=== PATIENT | female | born 1990 | race Asian ===

== ENCOUNTER 2022-08-12 08:00 | Outpatient (CLI) | payer OTHER | END 2022-08-12 23:59 | disposition home or self-care (01) | LOC: LAB.R 08:00 | PROVIDERS: ATTEND Registered Nurse | DX: L03.019 Cellulitis of unspecified finger (principal) | CPT/HCPCS: 87070; 87181; 87205 ==

== ENCOUNTER 2022-11-10 09:49 | Emergency (ER) | payer OTHER ==
[2022-11-10 10:07] VITALS: O2SAT 100
[2022-11-10 10:31] LABS: BILIRUBIN,URINE NEGATIVE (NEGATIVE); GLUCOSE, URINE (UA) NEGATIVE (NEGATIVE); KETONES,URINE (UA) NEGATIVE (NEGATIVE); LEUKOCYTE ESTERASE, URINE NEGATIVE (NEGATIVE); NITRITE,URINE NEGATIVE (NEGATIVE); OCCULT BLOOD,URINE NEGATIVE (NEGATIVE); PROTEIN,URINE NEGATIVE (NEGATIVE); UROBILINOGEN,URINE 0.2 (NORMAL) E.U./dL (NORMAL)
[2022-11-10 10:32] LABS: CLARITY,URINE CLEAR (CLEAR); HCG UR QUAL POSITIVE
[2022-11-10 10:37] LABS: BASOPHILS # (AUTO) 0.1 10^3/uL (0.0-0.1); BASOPHILS % (AUTO) 0.6 %; EOSINOPHILS # (AUTO) 0.2 10^3/uL (0.0-0.7); EOSINOPHILS % (AUTO) 1.5 %; HCT - HEMATOCRIT 39.2 % (37.0-47.0); HGB - HEMOGLOBIN 12.7 g/dL (12.0-16.0); LYMPHOCYTES % (AUTO) 30.5 %; MEAN CORPUSCULAR HEMOGLOBIN 28.3 pg (27.0-31.0); MEAN CORPUSCULAR HGB CONC 32.4 g/dL (32.0-36.0); MEAN CORPUSCULAR VOLUME 87.5 fL (81.0-99.0); MEAN PLATELET VOLUME 9.8 fL (7.9-10.8); MONOCYTES # (AUTO) 0.5 10^3/uL (0.0-1.0); MONOCYTES % (AUTO) 5.4 %; NEUTROPHILS % (AUTO) 61.7 %; PLT - PLATELET COUNT 365 10^3/uL (130-450); RED BLOOD COUNT 4.48 10^6/uL (4.20-5.40); RED CELL DISTRIBUTION WIDTH 12.9 % (12.0-15.0); WHITE BLOOD COUNT 9.8 x10^3/uL (4.8-10.8)
[2022-11-10 10:49] LABS: ALBUMIN 4.5 g/dL (3.2-5.5); ALBUMIN/GLOBULIN RATIO 1.2 (1.0-2.2); BILIRUBIN,TOTAL 0.3 mg/dL (0.2-1.0); CALCIUM 9.6 mg/dL (8.5-10.3); CREATININE 0.5 mg/dL (0.6-1.3); POTASSIUM 3.9 mmol/L (3.5-4.5); TOTAL PROTEIN 8.2 g/dL (6.4-8.9)
--- NOTE | 2022-11-10 11:15 | ED Physician Documentation ---
PD HPI FEMALE - Stated complaint Stated Complaint: ABD PX - Chief complaint Chief Complaint: Abd Pain - History obtained from History obtained from: Patient - Additional information Additional information: The patient comes to the emergency department chief complaint of left pelvic pain. She just had a positive urine test yesterday and denies any Vaginal bleeding. She has been a bit nauseated. No vaginal discharge, dysuria, or fevers. She states that she has otherwise been feeling well. She denies history of ectopic or pelvic infections or procedures. No other complaints at this time. 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 Other Past Medical History: gestational diabetes - Past Surgical History Past Surgical History: No - Present Medications Home Medications: Ambulatory Orders Medication Instructions Recorded Confirmed Pnv No.95/Ferrous Fum/Folic AC 1 each PO DAILY 11/10/22 11/10/22 [ Caplet] - Allergies Allergies/Adverse Reactions: Allergies Allergy/AdvReac Type Severity Reaction Status Date / Time No Known Drug Allergies Allergy Verified 11/10/22 09:58 - Social History Does the pt smoke?: No Smoking Status: Never smoker Does the pt drink ETOH?: No Does the pt have substance abuse?: No PD ED PE NORMAL - Vitals Vital signs reviewed: Yes - General General: Alert and oriented X 3, No acute distress, Well developed/nourished - HEENT HEENT: Atraumatic, PERRL, EOMI, Moist mucous membranes - Neck Neck: Supple, no meningeal sign - Cardiac Cardiac: RRR, No murmur - Respiratory Respiratory: Clear bilaterally - Abdomen Abdomen: Soft, Non distended, Other (Mild left pelvic tenderness, no rebound or guarding.) - Female Female : Deferred - Derm Derm: Normal color, Warm and dry, No rash - Extremities Extremities: No deformity - Neuro Neuro: Alert and oriented X 3 - Psych Psych: Normal mood, Normal affect Results - Vitals Vitals: Vital Signs - 24 hr 11/10/22 11/10/22 09:54 11:26 Temperature 37.1 C Heart Rate 96 92 Respiratory 14 18 Rate Blood Pressure 137/84 H 109/73 O2 Saturation 100 100 Oxygen O2 Source Room air - Labs Labs: Laboratory Tests 11/10/22 11/10/22 11/10/22 10:19 10:28 10:28 WBC 9.8 RBC 4.48 Hgb 12.7 Hct 39.2 MCV 87.5 MCH 28.3 MCHC 32.4 RDW 12.9 Plt Count 365 MPV 9.8 Neut # (Auto) 6.0 Lymph # (Auto) 3.0 Linn # (Auto) 0.5 Eos # (Auto) 0.2 Baso # (Auto) 0.1 Absolute Nucleated RBC 0.00 Nucleated RBC % 0.0 Sodium 134 L Potassium 3.9 Chloride 103 Carbon Dioxide 23 Anion Gap 8.0 BUN 10 Creatinine 0.5 L Estimated GFR (MDRD) 143 Glucose 88 Calcium 9.6 Total Bilirubin 0.3 AST 14 ALT 13 Alkaline Phosphatase 76 Total Protein 8.2 Albumin 4.5 Globulin 3.7 Albumin/Globulin Ratio 1.2 Lipase 23 Beta HCG, Quant Urine Color YELLOW Urine Clarity CLEAR Urine pH 7.0 Ur Specific Leopold <=1.005 Urine Protein NEGATIVE Urine Glucose (UA) NEGATIVE Urine Ketones NEGATIVE Urine Occult Blood NEGATIVE Urine Nitrite NEGATIVE Urine Bilirubin NEGATIVE Urine Urobilinogen 0.2 (NORMAL) Ur Leukocyte Esterase NEGATIVE Ur Microscopic Review NOT INDICATED Urine Culture Comments NOT INDICATED Urine HCG, Qual POSITIVE 11/10/22 10:28 WBC RBC Hgb Hct MCV MCH MCHC RDW Plt Count MPV Neut # (Auto) Lymph # (Auto) Linn # (Auto) Eos # (Auto) Baso # (Auto) Absolute Nucleated RBC Nucleated RBC % Sodium Potassium Chloride Carbon Dioxide Anion Gap BUN Creatinine Estimated GFR (MDRD) Glucose Calcium Total Bilirubin AST ALT Alkaline Phosphatase Total Protein Albumin Globulin Albumin/Globulin Ratio Lipase Beta HCG, Quant 5968.4 Urine Color Urine Clarity Urine pH Ur Specific Leopold Urine Protein Urine Glucose (UA) Urine Ketones Urine Occult Blood Urine Nitrite Urine Bilirubin Urine Urobilinogen Ur Leukocyte Esterase Ur Microscopic Review Urine Culture Comments Urine HCG, Qual - Rads (name of study) OB ultrasound Relevant Findings:: Final report received, See rad report (Intrauterine sac without definite fetus. Left hemorrhagic cyst and likely corpus luteum cyst.) PD Medical Decision Making - ED course Complexity details: reviewed results, re-evaluated patient, considered differential, d/w patient ED course: He OB ultrasound was performed and reported to show An intrauterine sac with possible pole and no definite heart rate. Hemorrhagic left ovarian cyst and corpus luteum cyst were also noted. I discussed with the patient that at this point in time, there intrauterine structures but that it is important for her to have a follow-up ultrasound in about a week. I have given her follow-up information for our women's clinic. I discussed with the patient that she will also need repeat hormones at that time. We [place] discussed [place] or more easily for these test, she may have them done there to I discussed with her that if she has any significant escalation in pain or she begins having vaginal bleeding, she should return here immediately. Departure - Departure Disposition: 01 Home, Self Care Clinical Impression: First trimester Pelvic pain affecting Qualifiers: Trimester: first trimester Qualified Code(s): O26.891 - Other specified related conditions, first trimester Condition: Stable Instructions: Preg 1st Trimester Follow-Up: Jose Farmer MD [Provider Admit Priv/Credential] - Comments: Your ultrasound today shows structures in the uterus. You do not have an ectopic . However, your is very early and because of this, the residential pest control technician was not able to picking machine operator a heartbeat. This may very well be because the is just in its very early stages and we can always see a heartbeat at this stage. However, sometimes it means that there is a problem with development of the . Only time will tell. What we generally do in this situation is to plan to have you get a repeat ultrasound in about a week, which gives your a little more time to develop and raises the likelihood that we will be able to see cardiac activity in the fetus. You can have your hormones rechecked at that time, as well, to make sure that they are going up appropriately. I have included the contact information for women's clinic here at would be, and they would be happy to follow-up with you about this matter. However, you may also [place] and see if [place] are able to do this as well, if you would rather. If you develop severe pain and/or vaginal bleeding, please return to the emergency department for reevaluation. Forms: PCP List, Activity restrictions Discharge Date/Time: 11/10/22 11:26
--- NOTE | 2022-11-10 11:25 | Ultrasound Report ---
PROCEDURE: OB First Trimester INDICATIONS: pelvic pain/5 wks preg OUTSIDE/PRIOR DATING DATA: Last menstrual period (LMP): 09/30/2022. LMP-based estimated date of delivery (IMTIAZ): 07/07/2023. First dating scan (date and location): Today. Estimated date of delivery (IMTIAZ) from first dating scan: 07/11/2023. TECHNIQUE: Real-time scanning was performed of the fetus and maternal pelvic organs, with image documentation. COMPARISON: None FINDINGS: Intrauterine gestational sac is present measuring 0.56 cm corresponding to an ultrasound a ge of 5 weeks and 2 days, however, no definite pole is seen. There may be a yolk sac versus tin y pole measuring 0.1 to 0.2 cm. 1.1 cm perigestational hemorrhage. Suspected left hemorrhagic cyst and right corpus luteum cyst. Small amount of free fluid. IMPRESSION: Intrauterine gestational sac. This is still considered of unknown location. There may be a tiny yolk sac versus pole. Short interval follow-up laboratory correlation and imaging are waldo mmended. Reviewed by: Ronaldo Moody MD on 11/10/2022 11:23 AM PDT Approved by: Ronaldo Moody MD on 11/10/2022 11:23 AM PDT Station ID: [id number]
[2022-11-10 11:29] VITALS: BP 109/73
== END 2022-11-10 11:26 | disposition home or self-care (01) ==
LOC: ED 09:49
DX: O26.891 Other specified pregnancy related conditions, first trimester (principal); R10.9 Unspecified abdominal pain; Z3A.00 Weeks of gestation of pregnancy not specified
CPT/HCPCS: 36415; 80053; 81001; 81003; 81025; 83690; 84702; 85025; 87086; 99282; 99284

== ENCOUNTER 2023-02-02 07:43 | Emergency (ER) | payer OTHER ==
[2023-02-02] MEDS ORDERED: LOPERAMIDE 2 MG CAPSULE PO STA (08:09)
[2023-02-02] MEDS ORDERED: ONDANSETRON ODT 4 MG TABLET TL STA (08:09)
--- NOTE | 2023-02-02 08:11 | ED Physician Documentation ---
PD HPI ABD PAIN - Stated complaint Stated Complaint: VOMIT,DIARRHEA,SPOTTING - Chief complaint Chief Complaint: Abd Pain - History obtained from History obtained from: Patient - Additional information Additional information: 32-year-old G2, P1 at 17 weeks 8 some fried sushi last night and then developed vomiting and diarrhea. Not much in the way of abdominal pain but she did develop very slight spotting "four drops." PD PAST MEDICAL HISTORY - Past Medical History Past Medical History: No Cardiovascular: None Respiratory: None Neuro: None Endocrine/Autoimmune: None ESCROW ASSISTANT: Other - Past Surgical History Past Surgical History: No - Present Medications Home Medications: Ambulatory Orders Medication Instructions Recorded Confirmed Pnv No.95/Ferrous Fum/Folic AC 1 each PO DAILY 11/10/22 02/02/23 [ Caplet] Loperamide [Imodium] 2 mg PO QID PRN #10 cap 02/02/23 Ondansetron Odt [Zofran] 4 mg TL Q6H PRN #10 tablet 02/02/23 - Allergies Allergies/Adverse Reactions: Allergies Allergy/AdvReac Type Severity Reaction Status Date / Time No Known Drug Allergies Allergy Verified 02/02/23 07:55 - Social History Does the pt smoke?: No Smoking Status: Never smoker Does the pt drink ETOH?: No Does the pt have substance abuse?: No - Immunizations Immunizations are current?: Yes - POLST Patient has POLST: No PD ED PE NORMAL - Vitals Vital signs reviewed: Yes - General General: Alert and oriented X 3, No acute distress - Abdomen Abdomen: Normal bowel sounds, Soft, Non tender - Female Female : Other (Bedside ultrasound demonstrates single live IUP with positive motion and heart rate of 159.) - Neuro Neuro: Alert and oriented X 3, Normal speech Results - Vitals Vitals: Vital Signs - 24 hr 02/02/23 07:52 Temperature 36.6 C Heart Rate 99 Respiratory 14 Rate Blood Pressure 129/74 O2 Saturation 98 Oxygen O2 Source Room air PD Medical Decision Making - ED course ED course: 32-year-old with gastroenteritis in . She has some spotting but reassuring bedside ultrasound. Volume of spotting she is describing would not merit RhoGAM I do not think. She was offered IV fluids and IV meds but prefers oral. Departure - Departure Disposition: 01 Home, Self Care Clinical Impression: 17 weeks gestation of Vomiting Qualifiers: Migraine intractability: nonintractable Diarrhea Qualifiers: Diarrhea type: presumed infectious Qualified Code(s): R19.7 - Diarrhea, unspecified Condition: Good Record reviewed to determine appropriate education?: Yes Instructions: ED Nausea Vomiting Prescriptions: Loperamide [Imodium] 2 mg PO QID PRN #10 cap PRN Reason: Diarrhea Ondansetron Odt [Zofran] 4 mg TL Q6H PRN #10 tablet PRN Reason: Nausea / Vomiting Comments: Seems like you have a mild case of food poisoning or stomach flu. Return tomorrow if not better, sooner if worse Forms: PCP List, Activity restrictions
[2023-02-02 08:33] VITALS: BP 122/63; O2SAT 99
== END 2023-02-02 08:29 | disposition home or self-care (01) ==
LOC: ED 07:43
DX: O26.892 Other specified pregnancy related conditions, second trimester (principal); R11.2 Nausea with vomiting, unspecified; R19.7 Diarrhea, unspecified; Z3A.17 17 weeks gestation of pregnancy
CPT/HCPCS: 99282; 99283; A9270; Q0162